=== PATIENT | female | born 1940 | race Caucasian/White ===

== ENCOUNTER 2023-06-24 12:03 | Outpatient (CLI) | payer MEDICARE, SELFPAY ==
[2023-06-24 12:53] LABS: Basophils Percent Auto 0.5 % (0.2-1.2); Eosinophils Absolute Auto 0.1 K/mm3 (0-0.3); Eosinophils Percent Auto 3.3 % (0-4.4); Hematocrit 39.5 % (37.0-47.0); Hemoglobin 12.9 g/dL (12.0-15.0); Immature Granulocyte Absolute 0.01 K/mm3 (0.00-0.031); Immature Granulocyte Percent A 0.2 % (0-0.5); Lymphocytes Absolute Auto 1.14 K/mm3 (0.9-3.2); Lymphocytes Percent Auto 26.6 % (18.3-44.2); Mean Corpuscular HGB Conc 32.7 g/dl (32-36); Mean Corpuscular Hemoglobin 31.1 pg (26-34); Mean Corpuscular Volume 95.2 fl (80-100); Mean Platelet Volume 10.2 fl (7.4-10.4); Monocytes Absolute Auto 0.4 K/mm3 (0.1-0.6); Monocytes Percent Auto 9.6 % (2.6-8.5); Neutrophils Absolute Auto 2.6 K/mm3 (1.3-6.7); Neutrophils Percent Auto 59.8 % (45.5-73.1); Platelet Count Result 214 k/mm3 (150-375); Red Blood Count 4.15 M/mm3 (4.2-5.4); Red Cell Distribution Width 12.5 % (11.5-14.5); White Blood Count 4.3 K/mm3 (4.5-10.0)
[2023-06-24 13:06] LABS: Potassium 4.4 mmol/L (3.4-5.0)
[2023-06-24 13:10] LABS: Alanine Aminotransferase 20 U/L (6-35); Alkaline Phosphatase 92 U/L (38-126); Anion Gap 6 mmol/L (8-16); Aspartate Amino Transferase 29 U/L (14-36); Bilirubin,Total 0.7 mg/dL (0.2-1.3); Blood Urea Nitrogen 23 mg/dL (7-17); Carbon Dioxide 30 mmol/L (22-30); Chloride 102 mmol/L (98-107); Estimated Glomerular Filt Rate > 60; Glucose 101 mg/dL (65-110); Sodium 138 mmol/L (137-145)
[2023-06-24 13:13] LABS: NT Pro B Type Natriuretic Pept 461 pg/mL (19.9-100)
== END 2023-06-24 12:04 | disposition home or self-care (01) ==
PROVIDERS: Visit Provider Internal Medicine Cardiovascular Disease
DX: R06.09 Other forms of dyspnea (principal); I10 Essential (primary) hypertension; R60.0 Localized edema; Z79.01 Long term (current) use of anticoagulants
CPT/HCPCS: 36415; 80053; 83880; 85025

== ENCOUNTER 2023-06-25 14:02 | Outpatient (CLI) | payer MEDICARE, SELFPAY ==
--- NOTE | ~2023-06-25 | XR_ITS ---
XR chest 2V DATE: 06/25/2023 14:24 INDICATION: Dyspnea on exertion TECHNIQUE: AP and lateral views COMPARISON: None FINDINGS: Cardiomegaly. Aortic arch calcification. Is slight prominence of the fissures and suggestion of some subtle {B-lines which may indicate mild s ubpleural and pulmonary interstitial edema. No pulmonary infiltrate or consolidation is evident. Osteopenia. Degenerative spurring of the thoracic spine. Osteoarthritic change at the glenohumeral kalin ints. Widened right acromioclavicular space. IMPRESSION: Cardiomegaly; mild congestive changes are suggested Reviewed, dictated and finalized at location L. [employer] DEVELOPER
== END 2023-06-25 14:03 | disposition home or self-care (01) ==
PROVIDERS: PCP Hospitalist; Visit Provider Internal Medicine Cardiovascular Disease
DX: R06.09 Other forms of dyspnea (principal); I51.7 Cardiomegaly
CPT/HCPCS: 71046

== ENCOUNTER 2023-06-30 17:45 | Inpatient (IN) | payer MEDICARE, SELFPAY ==
[2023-06-30 12:23] VITALS: BMI 53.5
--- NOTE | 2023-06-30 12:31 | ADMGEN ---
This patient, Shyanne Nino, was admitted to [facility] Surg Room 330-02. Patient/family oriented to hospital policies and general routines including ID bracelet, bed and alarms, visiting hours, pain management, procedures, bathroom and other care routines, personal items, smoking policy, room service/diet, and visiting hours. Information on how to activate the Rapid Response Team has been discussed. Patient/Family are encouraged to report perceived risks to care and to ask questions if they do not understand what they are told or what they should do.
[2023-06-30 12:52] VITALS: BMI 53.5
--- NOTE | 2023-06-30 13:13 | PM.CNCAR ---
Assessment and Plan Assessment and plan (1) Acute diastolic heart failure: Code(s): I50.31 - Acute diastolic (congestive) heart failure Status: Acute Assessment and Plan: Patient presented with new onset of diastolic heart failure last week with a 30 lb weight gain and worsening lower extremity edema with RIOS. She has but been noncompliant with outpatient diuretic therapy due to problems with urinary frequency, urgency, and significant problems with ambulation. We are admitting her for IV diuretics and likely she will need a Hines catheter for few days. --furosemide 40 mg IV push b.i.d. --spironolactone 25 mg daily --Jardiance 10 mg daily. Family had concerns about risk of yeast infections. She has had yeast infections which appear to be intertriginous to infections not in the perineal area. She is not a diabetic so is less likely to have problems with UTIs in perineal yeast infections with Jardiance. The benefit from an SGLT 2 inhibitor outweighs the risk of perineal yeast infections. --consider adding Entresto, although with her EF being greater than 60% the benefit may not be very high. -- I's and O's, daily weights -- consider as ApneaLink monitor after better compensated. (2) Hypertension: Code(s): I10 - Essential (primary) hypertension Status: Acute Assessment and Plan: Continue carvedilol, spironolactone, furosemide and enalapril (3) H/O deep venous thrombosis: Code(s): Z86.718 - Personal history of other venous thrombosis and embolism Status: Acute Assessment and Plan: History of DVTs. Continue Eliquis. She has been taking the lower dose, 2.5 mg b.i.d., for DVT prophylaxis. (4) Infection of knee: Code(s): M00.9 - Pyogenic arthritis, unspecified Status: Acute Assessment and Plan: Continue chronic suppressive antibiotic therapy (5) Difficulty in walking: Code(s): R26.2 - Difficulty in walking, not elsewhere classified Status: Acute Assessment and Plan: Patient has progressive disability, difficulty ambulating, and has been a fall risk. --Physical therapy and occupational therapy. History of Present Illness History of Present Illness Consult date/time: 06/30/23 13:13 Reason For Visit: Diastolic Heart Failure Narrative: Shyanne Nino is an 82-year-old lady with diastolic heart failure. She also has a history of hypertension, lymphedema, history of DVT on chronic anticoagulation. She also has a history of infected left knee a chronic suppressive antibiotics status post multiple lower extremity operations. She has had some trouble with depression and progressive disability. Her primary care doctor is hoping to start outpatient physical therapy and occupational therapy The patient was seen by myself last week with new onset diastolic heart failure. She was having more RIOS, significant edema, 30 lb weight gain, sleeping in a recliner. She had been noncompliant with her furosemide because of her inability to ambulate easily to the bathroom, and because of her urinary frequency which also prevents her from participating in activities at her assisted Living apartment. At that office visit I found her be MANAGER ENT was elevated and chest x-ray showed CHF to recommended she increase her furosemide from 20 mg daily to 40 mg daily and add spironolactone and Jardiance. She returned to the office today, non compliant with her diuretics due to the above problems. The with minor activity, and significant lower extremity edema. She is being admitted for CHF exacerbation for IV diuretics and likely a Hines catheter. Review of Systems Constitutional: Constitutional: Denies fever(s) Comments: weight gain of 30 lb Eyes: Eyes: Reports no additional eye complaints ENT: Denies epistaxis Cardiovascular: Cardiovascular: Denies chest pain, Reports pedal edema, Reports leg edema and Denies lightheadedness Respiratory: Respiratory:
[2023-06-30 14:00] VITALS: BP 180/56; PULSE 61; RESP 10; TEMP 36.4; O2SAT 95
[2023-06-30] MEDS: ENALAPRIL MALEATE 10 MG TABLET 20 MG PO (15:04)
[2023-06-30] MEDS: EMPAGLIFLOZIN 10 MG TABLET PO (15:04)
[2023-06-30] MEDS: SPIRONOLACTONE 25 MG TABLET PO (15:04)
--- NOTE | 2023-06-30 16:11 | PM.IMHP ---
H&P: HPI History of Present Illness Date/Time: 06/30/23 16:30 Chief Complaint: Diastolic congestive heart failure exacerbation. Narrative: This is a very pleasant 82-year-old female with history of deep venous thrombosis on chronic anticoagulation, hypertension, hyperlipidemia, chronic lymphedema, morbid obesity, and diastolic congestive heart failure who is being directly admitted to the medical floor for diuresis. She was seen by Dr. Hernandez as an outpatient last week for evaluation of new onset diastolic congestive heart failure. She reports a 30 lb weight gain and worsening lower extremity edema with dyspnea on exertion. She has not been compliant with diuretics as it causes her urinary frequency and due to her weight and debility she is not able to get to the bathroom quickly when she develops the urge to urinate. She is being admitted in this setting for IV diuresis. At the time my evaluation she is resting comfortably and has no specific complaints. She denies chest pain, pleuritic pain, palpitations, orthopnea (she has slept in a recliner for years), nausea, vomiting, and sweats. Review of Systems Review of Systems: Twelve systems were reviewed. No fever, chills, or sweats. No recent cold or flu symptoms. She has chronic lymphedema and had seen a specialist previously. She was given a pump to help treat the lymphedema however does not use it. She has not had any falls but reports that she is unsteady on her feet and has difficulties ambulating due to the size of her legs. She is afraid that she is going to have falls. She has no known history of sleep apnea. Except as documented, all other systems were reviewed and are negative. [facility] Past Medical History Medical History (Updated 06/30/23 @ 22:36 by Donna Beck PA-C) Arthritis Chronic anticoagulation For history of several DVTs. Deep venous thrombosis History of DVT in the right upper extremity and lower extremities on chronic anticoagulation. Depression Diastolic congestive heart failure Hyperlipidemia Hypertension Infection of knee Chronic knee infection, on chronic suppressive antibiotics through Infectious Disease at [facility]. Lymphedema Morbid obesity Rupture of left quadriceps tendon Surgical History Surgical History (Updated 06/30/23 @ 22:34 by Donna Beck PA-C) History of bilateral cataract extraction History of bilateral knee replacement History of section History of cholecystectomy History of hysterectomy History of rotator cuff surgery History of toe surgery Family History Family History Mother Lung cancer Grandparent No problems noted. Father Diabetes mellitus Congestive heart failure Social History Social History Social History: Healthcare power of eap consultant: Niurka Muir, daughter. Code status: Full code. Smoking status: Never smoker Alcohol intake: never Substance use: never Do You Feel Safe in your Home?: No Lack of Transportation: No Lack of Food: Never True Current Housing: I Have Housing Concerned About Future Housing: No Difficulty Paying Gas/Electric Bills: No Difficulty Paying for Meds: No Currently Unemployed: No Education: High School Diploma/GED Difficulty w/ Childcare or Family Care: No Living arrangements: assisted living Spiritual care concerns: No Meds Home Medications and Allergies Home Medications Medication Instructions Recorded Confirmed Type amiloride 5 mg tablet 5 mg PO DAILY 06/30/23 06/30/23 History apixaban 2.5 mg tablet (Eliquis) 2.5 mg PO BID 06/30/23 06/30/23 History atorvastatin 10 mg tablet 10 mg PO HS 06/30/23 06/30/23 History carvedilol 12.5 mg tablet 12.5 mg PO BIDWM 06/30/23 06/30/23 History cefpodoxime 200 mg tablet 200 mg PO 1200,1700 06/30/23 06/30/23 History empagliflozin 10 mg tablet 10 mg PO DAILY 06/15
[2023-06-30 16:45] LABS: Appearance Urine Clear (Clear); Bilirubin Urine Negative (Negative); Blood Urine Negative (Negative); Color Urine Yellow (Yellow); Glucose Urine UA Trace mg/dL (Negative); Ketones Urine Negative (Negative); Leukocyte Esterase Ur Negative LEU/UL (NEGATIVE); Nitrate Urine Negative (Negative); Protein Urine Negative (Negative); Specific Grav Ur 1.014 (1.001-1.035); Urobilinogen Urine 0.2 mg/dL (<2.0)
[2023-06-30 16:50] LABS: Add Urine Microscopic? YES
[2023-06-30 17:06] VITALS: BP 182/62; PULSE 64; RESP 22; TEMP 36.4; O2SAT 96
--- NOTE | 2023-06-30 17:10 | PHAR ---
HOME MED Cefpodoxime 200 mg tablet; TAKE 1 TABLET (200 MG) BY MOUTH TWICE DAILY. VERIFIED BY PHARMACY.
[2023-06-30 17:18] VITALS: PULSE 64
[2023-06-30] MEDS: TOLNAFTATE 1% POWDER 45 GM BTL 1 APPLIC TOPICAL ×2 (17:18→20:52)
[2023-06-30] MEDS: APIXABAN 2.5 MG TABLET PO (17:18)
[2023-06-30] MEDS: POTASSIUM CHLORIDE 10 MEQ ER TABLET PO (17:18)
[2023-06-30] MEDS: carvediloL 12.5 MG TABLET PO (17:18)
[2023-06-30] MEDS: FUROSEMIDE INJ 40 MG/4 ML VIAL IV PUSH (17:19)
[2023-06-30] MEDS: INDOMETHACIN 25 MG CAPSULE PO (17:19)
[2023-06-30] MEDS: ACETAMINOPHEN 325 MG TABLET 650 MG PO (17:42)
[2023-06-30] MEDS: ATORVASTATIN 10 MG TABLET PO (20:51)
[2023-06-30] MEDS: traZODone HCL 50 MG TABLET PO (20:51)
[2023-06-30 22:00] VITALS: BP 152/55; PULSE 60; RESP 18; TEMP 37; O2SAT 93
[2023-07-01 06:00] VITALS: BP 147/63; PULSE 64; RESP 20; TEMP 36.8; O2SAT 95
[2023-07-01 06:31] LABS: Hematocrit 36.3 % (37.0-47.0); Mean Corpuscular HGB Conc 33.1 g/dl (32-36); Mean Corpuscular Hemoglobin 31.7 pg (26-34); Mean Corpuscular Volume 95.8 fl (80-100); Mean Platelet Volume 10.2 fl (7.4-10.4); Platelet Count Result 211 k/mm3 (150-375); Red Blood Count 3.79 M/mm3 (4.2-5.4); Red Cell Distribution Width 12.5 % (11.5-14.5)
[2023-07-01 06:43] LABS: Alanine Aminotransferase 20 U/L (6-35); Albumin Level 3.6 g/dL (3.5-5.1); Alkaline Phosphatase 74 U/L (38-126); Anion Gap 3 mmol/L (8-16); Aspartate Amino Transferase 25 U/L (14-36); Bilirubin,Total 0.8 mg/dL (0.2-1.3); Blood Urea Nitrogen 25 mg/dL (7-17); Calcium 8.7 mg/dL (8.4-10.2); Carbon Dioxide 33 mmol/L (22-30); Chloride 102 mmol/L (98-107); Estimated CRCL calculation 59 ml/min; Estimated Glomerular Filt Rate > 60; Glucose 91 mg/dL (65-110); Magnesium 1.7 mg/dL (1.6-2.3); Sodium 138 mmol/L (137-145)
[2023-07-01 08:43] VITALS: BP 159/54; PULSE 65; RESP 18; TEMP 37.2; O2SAT 96
--- NOTE | 2023-07-01 08:46 | PM.PNCARD ---
Progress Note: A&P Assessment and Plan (1) Acute diastolic heart failure: Code(s): I50.31 - Acute diastolic (congestive) heart failure Status: Acute Assessment and Plan: Patient presented with new onset of diastolic heart failure last week with a 30 lb weight gain and worsening lower extremity edema with RIOS. She has but been noncompliant with outpatient diuretic therapy due to problems with urinary frequency, urgency, and significant problems with ambulation. We are admitting her for IV diuretics and likely she will need a Hines catheter for few days. Diuresing well. --continue furosemide 40 mg IV push b.i.d. --continue spironolactone 25 mg daily and Jardiance 10 mg daily which were started on this admission. --will add Entresto, although with her EF being greater than 60% the benefit may not be very high. Hold enalapril 1st. -- I's and O's, daily weights, daily BMP --no history of sleep apnea but snores. ApneaLink monitor --explained to the patient that we will try to get her close to optimal volume status during this hospital stay, and this will require several days of INPT IV diuretic tx. She will require some diuretic therapy on discharge but hopefully something that is better tolerated than furosemide (which causes urinary urgency and frequency and is often skipped) --perhaps amiloride + spironolactone? (2) Hypertension: Code(s): I10 - Essential (primary) hypertension Status: Acute Assessment and Plan: Continue carvedilol, spironolactone, furosemide and change enalapril to Entresto. BP likely will improve w/ diuresis. (3) H/O deep venous thrombosis: Code(s): Z86.718 - Personal history of other venous thrombosis and embolism Status: Acute Assessment and Plan: History of DVTs. Continue Eliquis. She has been taking the lower dose, 2.5 mg b.i.d., for DVT prophylaxis. (4) Infection of knee: Code(s): M00.9 - Pyogenic arthritis, unspecified Status: Acute Assessment and Plan: Continue chronic suppressive antibiotic therapy (5) Lymphedema: Code(s): I89.0 - Lymphedema, not elsewhere classified Status: Acute Assessment and Plan: TEDs (6) Difficulty in walking: Code(s): R26.2 - Difficulty in walking, not elsewhere classified Status: Acute Assessment and Plan: Patient has progressive disability, difficulty ambulating, and has been a fall risk. --Physical therapy and occupational therapy. Subjective Date/time seen: 07/01/23 08:46 Interval history: New onset of acute diastolic failure, failing outpatient therapy, admitted for IV diuretics. History of hypertension, lymphedema, DVT on chronic anticoagulation, chronic infection of knee, and ambulatory difficulties. Great difficulty taking diuretics at home due to issues with ambulation Date of service: 07/01/2023: Feels well, no SOB at rest. Already wondering how long she will need to be here and when she can go home. Daughter Veronica? is at the bedside. Systolic blood pressure 150-180 MmHg. Good diuresis. Not requiring O2. Worked with physical therapy. Review of Systems Review of Systems: No shortness of breath at rest, no chest pain, ongoing edema, no GI problems, no pain. Exam Const: General: cooperative, healthy appearing and comfortable; No confusion Orientation/consciousness: oriented to person, patient oriented x3 and No confusion Other: Sitting up in a chair, daughter at bedside, no distress HENMT: Mouth: Yes moist mucous membranes Eyes: General: appearance normal, both eyes and all related structures EOM: EOMs intact bilaterally Neck: Neck: supple Resp: Effort & Inspection: normal respiratory effort Auscultation: rales (Left base) Cardio: Rate: regular rate Rhythm: regular rhythm Heart sounds: no murmurs GI: Inspection: normal to inspection GI Palp: No abdominal tenderness Skin: Rashes: rashes noted
[2023-07-01] MEDS: ESCITALOPRAM OXALATE 10 MG TABLET 20 MG PO (09:14)
[2023-07-01 09:15] VITALS: PULSE 80
[2023-07-01] MEDS: EMPAGLIFLOZIN 10 MG TABLET PO (09:15)
[2023-07-01] MEDS: carvediloL 12.5 MG TABLET PO ×2 (09:15→16:14)
[2023-07-01] MEDS: SPIRONOLACTONE 25 MG TABLET PO (09:15)
[2023-07-01] MEDS: APIXABAN 2.5 MG TABLET PO ×2 (09:15→16:15)
[2023-07-01] MEDS: POTASSIUM CHLORIDE 10 MEQ ER TABLET PO ×2 (09:15→16:15)
[2023-07-01] MEDS: INDOMETHACIN 25 MG CAPSULE PO ×2 (09:15→16:14)
[2023-07-01] MEDS: FUROSEMIDE INJ 40 MG/4 ML VIAL IV PUSH ×2 (09:16→16:15)
[2023-07-01] MEDS: ENALAPRIL MALEATE 10 MG TABLET 20 MG PO (12:11)
[2023-07-01 14:00] VITALS: BP 128/43; PULSE 59; RESP 16; TEMP 36.6; O2SAT 95
--- NOTE | 2023-07-01 16:09 | PM.IMPN ---
Progress Note: A&P Assessment and Plan (1) Acute on chronic diastolic heart failure: Code(s): I50.33 - Acute on chronic diastolic (congestive) heart failure Status: Acute Assessment and Plan: furosemide 40 mg IV b.i.d. started on spironolactone 20 mg p.o. daily. Jardiance 10 mg daily Monitor volume status, renal function, and electrolytes while diuresing. cardiology consulted - add Entresto, although with her EF being greater than 60% the benefit may not be very high. Hold enalapril 1st. apnea link ordered (2) Morbid obesity: Code(s): E66.01 - Morbid (severe) obesity due to excess calories Status: Chronic (3) Difficulty in walking: Code(s): R26.2 - Difficulty in walking, not elsewhere classified Status: Chronic Assessment and Plan: Patient has progressive disability, difficulty ambulating, and has been a fall risk. PT/OT (4) Hypertension: Code(s): I10 - Essential (primary) hypertension Status: Chronic Assessment and Plan: Continue carvedilol, spironolactone, furosemide change enalapril to Entresto. (5) Chronic anticoagulation: Code(s): Z79.01 - [facility] (current) use of anticoagulants Status: Chronic Assessment and Plan: hx of DVT continue Eliquis (6) Lymphedema: Code(s): I89.0 - Lymphedema, not elsewhere classified Status: Chronic Subjective Date/time seen: 07/01/23 16:09 Interval history: Patient doing well this morning, denies any pain or distress. Will continue IV diuresis. No drop in weight since admission. Denies SOB or chest pain. Cardiology following and will follow recommendations. Continue to monitor response. Hnies remains in place while actively diuresing. Review of Systems Review of Systems: All systems reviewed & are unremarkable except as noted in HPI and below Exam Narrative: General: Well-developed, nontoxic-appearing female bed in no acute distress. HEENT: PERRL, EOMI. Neck: Supple. Respiratory: Respirations are nonlabored Faint crackles heard at the bases. Cardiovascular: RRR with S1-S2. Gastrointestinal: Abdomen is soft, morbidly obese, nontender, and nondistended with positive bowel sounds. Skin: Warm and dry. Chronic skin changes of the lower extremities bilaterally. Extremities: No cyanosis or clubbing. Significant bilateral lower extremity edema with pitting edema, left greater than right. Radial and pedal pulses intact. Neurological: A&O x3. Cranial nerves 2-12 are grossly intact. No gross focal deficits to casual conversation. Psychiatric: Pleasant and cooperative with normal mood and affect. Judgment and insight intact. Objective Data Vital Signs Vital Signs: Vital Signs - 24 hr 06/30/23 17:06 06/30/23 17:18 06/30/23 22:00 Temperature 97.5 F L 98.6 F Pulse Rate 64 64 60 Respiratory Rate 22 H 18 Blood Pressure 182/62 H 152/55 H Pulse Oximetry 96 93 Oxygen Delivery 07/01/23 06:00 07/01/23 08:43 07/01/23 09:15 Temperature 98.2 F 98.9 F Pulse Rate 64 65 80 Respiratory Rate 20 18 Blood Pressure 147/63 H 159/54 H Pulse Oximetry 95 96 Oxygen Delivery 07/01/23 09:15 07/01/23 11:17 07/01/23 14:00 Temperature 97.9 F Pulse Rate 59 L Respiratory Rate 16 Blood Pressure 128/43 L Pulse Oximetry 95 Oxygen Delivery Room Air Room Air Intake/Output Intake/Output: Intake & Output 06/28/23 06/29/23 06/30/23 07/01/23 23:59 23:59 23:59 23:59 Intake Total 550 780 Output Total 1450 2750 Balance -900 -1970 Meds/Results Medications: Active Medications Generic Name Dose Route Start Last Admin Trade Name Freq PRN Reason Stop Dose Admin Acetaminophen 650 mg 06/30/23 16:23 06/30/23 17:42 Acetaminophen 325 Mg Tablet PO 650 mg Q6H PRN Administration Mild Pain (1-3) or Fever Apixaban 2.5 mg 06/30/23 17:00 07/01/23 09:15 Apixaban 2.5 Mg Tablet PO 2.5 mg BID WILLIAM Administration
[2023-07-01 16:14] VITALS: PULSE 64
[2023-07-01] MEDS: TOLNAFTATE 1% POWDER 45 GM BTL 1 APPLIC TOPICAL ×2 (16:14→20:55)
[2023-07-01] MEDS: diphenhydrAMINE HCl CAP 25 MG CAPSULE PO (17:51)
[2023-07-01] MEDS: ATORVASTATIN 10 MG TABLET PO (20:54)
[2023-07-01 22:00] VITALS: BP 138/51; PULSE 62; RESP 18; TEMP 36.6; O2SAT 93
[2023-07-01] MEDS: traZODone HCL 50 MG TABLET PO (22:19)
[2023-07-02 06:00] VITALS: BP 158/72; PULSE 69; RESP 18; TEMP 36.4; O2SAT 92
[2023-07-02 07:00] LABS: Hematocrit 37.2 % (37.0-47.0); Hemoglobin 11.7 g/dL (12.0-15.0); Mean Corpuscular HGB Conc 31.5 g/dl (32-36); Mean Corpuscular Hemoglobin 30.2 pg (26-34); Mean Corpuscular Volume 95.9 fl (80-100); Mean Platelet Volume 10.1 fl (7.4-10.4); Platelet Count Result 198 k/mm3 (150-375); Red Blood Count 3.88 M/mm3 (4.2-5.4); Red Cell Distribution Width 12.4 % (11.5-14.5); White Blood Count 5.7 K/mm3 (4.5-10.0)
[2023-07-02 07:16] LABS: Anion Gap 6 mmol/L (8-16); Blood Urea Nitrogen 25 mg/dL (7-17); Calcium 8.6 mg/dL (8.4-10.2); Carbon Dioxide 33 mmol/L (22-30); Chloride 99 mmol/L (98-107); Estimated CRCL calculation 58 ml/min; Estimated Glomerular Filt Rate > 60; Glucose 106 mg/dL (65-110); Potassium 3.8 mmol/L (3.4-5.0); Sodium 138 mmol/L (137-145)
[2023-07-02 10:23] VITALS: PULSE 64
[2023-07-02] MEDS: FUROSEMIDE INJ 40 MG/4 ML VIAL IV PUSH ×2 (10:23→17:06)
[2023-07-02] MEDS: INDOMETHACIN 25 MG CAPSULE PO ×2 (10:23→17:05)
[2023-07-02] MEDS: EMPAGLIFLOZIN 10 MG TABLET PO (10:23)
[2023-07-02] MEDS: carvediloL 12.5 MG TABLET PO ×2 (10:23→17:05)
[2023-07-02] MEDS: POTASSIUM CHLORIDE 10 MEQ ER TABLET PO ×2 (10:23→17:05)
[2023-07-02] MEDS: SPIRONOLACTONE 25 MG TABLET PO (10:23)
[2023-07-02] MEDS: ESCITALOPRAM OXALATE 10 MG TABLET 20 MG PO (10:23)
[2023-07-02] MEDS: APIXABAN 2.5 MG TABLET PO ×2 (10:23→17:06)
[2023-07-02] MEDS: TOLNAFTATE 1% POWDER 45 GM BTL 1 APPLIC TOPICAL ×2 (10:26→20:33)
--- NOTE | 2023-07-02 11:11 | PM.IMPN ---
Progress Note: A&P Assessment and Plan (1) Acute on chronic diastolic heart failure: Code(s): I50.33 - Acute on chronic diastolic (congestive) heart failure Status: Acute Assessment and Plan: furosemide 40 mg IV b.i.d. started on spironolactone 20 mg p.o. daily. Jardiance 10 mg daily Monitor volume status, renal function, and electrolytes while diuresing. cardiology consulted - add Entresto, although with her EF being greater than 60% the benefit may not be very high. Hold enalapril 1st. apnea link done, would benefit from outpatient sleep study. CPAP while inpatient (2) Morbid obesity: Code(s): E66.01 - Morbid (severe) obesity due to excess calories Status: Chronic (3) Difficulty in walking: Code(s): R26.2 - Difficulty in walking, not elsewhere classified Status: Chronic Assessment and Plan: Patient has progressive disability, difficulty ambulating, and has been a fall risk. PT/OT (4) Hypertension: Code(s): I10 - Essential (primary) hypertension Status: Chronic Assessment and Plan: Continue carvedilol, spironolactone, furosemide change enalapril to Entresto. (5) Chronic anticoagulation: Code(s): Z79.01 - salvage determiner (current) use of anticoagulants Status: Chronic Assessment and Plan: hx of DVT continue Eliquis (6) Lymphedema: Code(s): I89.0 - Lymphedema, not elsewhere classified Status: Chronic Subjective Date/time seen: 07/02/23 11:11 Interval history: Patient doing well this morning, denies any pain or distress. She is sitting up in her chair. Will continue IV diuresis. Denies SOB or chest pain. Cardiology following and will follow recommendations. Continue to monitor response. Hines remains in place while actively diuresing. Apnea link done and patient would benefit from outpatient sleep study. Will order CPAP while inpatient. Review of Systems Review of Systems: All systems reviewed & are unremarkable except as noted in HPI and below Exam Narrative: General: Well-developed, nontoxic-appearing female bed in no acute distress. HEENT: PERRL, EOMI. Neck: Supple. Respiratory: Respirations are nonlabored, lungs clear to ausculation. Cardiovascular: RRR with S1-S2. Gastrointestinal: Abdomen is soft, morbidly obese, nontender, and nondistended with positive bowel sounds. Skin: Warm and dry. Chronic skin changes of the lower extremities bilaterally. Extremities: No cyanosis or clubbing. Improving bilateral lower extremity edema with pitting edema, left greater than right. Radial and pedal pulses intact. Neurological: A&O x3. Cranial nerves 2-12 are grossly intact. No gross focal deficits to casual conversation. Psychiatric: Pleasant and cooperative with normal mood and affect. Judgment and insight intact. Objective Data Vital Signs Vital Signs: Vital Signs - 24 hr 07/01/23 11:17 07/01/23 14:00 07/01/23 16:14 Temperature 97.9 F Pulse Rate 59 L 64 Respiratory Rate 16 Blood Pressure 128/43 L Pulse Oximetry 95 Oxygen Delivery Room Air 07/01/23 22:00 07/02/23 06:00 07/02/23 10:23 Temperature 97.9 F 97.5 F L Pulse Rate 62 69 64 Respiratory Rate 18 18 Blood Pressure 138/51 L 158/72 H Pulse Oximetry 93 92 Oxygen Delivery Intake/Output Intake/Output: Intake & Output 06/29/23 06/30/23 07/01/23 07/02/23 23:59 23:59 23:59 23:59 Intake Total 550 1390 390 Output Total 1450 4750 850 Balance -739 -3493 -583 Meds/Results Medications: Active Medications Generic Name Dose Route Start Last Admin Trade Name Freq PRN Reason Stop Dose Admin Acetaminophen 650 mg 06/30/23 16:23 06/30/23 17:42 Acetaminophen 325 Mg Tablet PO 650 mg Q6H PRN Administration Mild Pain (1-3) or Fever Apixaban 2.5 mg 06/30/23 17:00 07/02/23 10:23 Apixaban 2.5 Mg Tablet PO 2.5 mg BID WILLIAM Administration Atorvastatin Calcium 10 mg 06/30/23 21
[2023-07-02 14:00] VITALS: BP 139/74; PULSE 60; RESP 16; TEMP 36.4; O2SAT 96
--- NOTE | 2023-07-02 14:03 | PM.PNCARD ---
Progress Note: A&P Assessment and Plan (1) Acute diastolic heart failure: Code(s): I50.31 - Acute diastolic (congestive) heart failure Status: Acute Assessment and Plan: Patient presented with new onset of diastolic heart failure last week with a 30 lb weight gain and worsening lower extremity edema with RIOS. She has not been noncompliant with outpatient diuretic therapy due to problems with urinary frequency, urgency, and significant problems with ambulation. We admitted her for IV diuretics and likely she will need a Hiens catheter for few days. Diuresing well. --continue furosemide 40 mg IV push b.i.d. --continue spironolactone 25 mg daily and Jardiance 10 mg daily which were started on this admission. --will add Entresto, although with her EF being greater than 60% the benefit may not be very high. Hold enalapril 1st. -- I's and O's, daily weights, daily BMP --explained to the patient that we will try to get her close to optimal volume status during this hospital stay, and this will require several days of INPT IV diuretic tx. She will require some diuretic therapy on discharge but hopefully something that is better tolerated than furosemide (which causes urinary urgency and frequency with which patient was non compliant) --perhaps amiloride + spironolactone daily? And furosemide once or twice a week? --anticipate discharge on Thursday or Thursday. (2) Hypertension: Code(s): I10 - Essential (primary) hypertension Status: Chronic Assessment and Plan: Continue carvedilol, spironolactone, furosemide and change enalapril to Entresto. BP likely will improve w/ diuresis. (3) H/O deep venous thrombosis: Code(s): Z86.718 - Personal history of other venous thrombosis and embolism Status: Acute Assessment and Plan: History of DVTs. Continue Eliquis. She has been taking the lower dose, 2.5 mg b.i.d., for DVT prophylaxis. (4) Infection of knee: Code(s): M00.9 - Pyogenic arthritis, unspecified Status: Acute Assessment and Plan: Continue chronic suppressive antibiotic therapy (5) Lymphedema: Code(s): I89.0 - Lymphedema, not elsewhere classified Status: Chronic Assessment and Plan: TEDs while here. Encourage patient to use her compression boots when she gets discharged. Supposed use of med an hour twice daily. (6) Rash: Code(s): R21 - Rash and other nonspecific skin eruption Status: Acute Assessment and Plan: Intertriginous rash, probably [place], present on admission. Getting cleaned and dried, powdered with antifungal powder. (7) Difficulty in walking: Code(s): R26.2 - Difficulty in walking, not elsewhere classified Status: Chronic Assessment and Plan: Patient has progressive disability, difficulty ambulating, and has been a fall risk. --Physical therapy and occupational therapy. Subjective Date/time seen: 07/02/23 14:03 Interval history: New onset of acute diastolic failure, failing outpatient therapy, admitted for IV diuretics. History of hypertension, lymphedema, DVT on chronic anticoagulation, chronic infection of knee, and ambulatory difficulties. Great difficulty taking diuretics at home due to issues with ambulation Date of service 07/01/2023: Feels well, no SOB at rest. Already wondering how long she will need to be here and when she can go home. Daughter Veronica? is at the bedside. Systolic blood pressure 150-180 MmHg. Good diuresis. Not requiring O2. Worked with physical therapy. Service 07/02/2023: Less RIOS w/ Ph Tx. LE edema improving. Maintaining good diuresis. Renal function stable. Itchy intertriginous rash in the inguinal areas quite bothersome; getting Tolnaftate powder. Pleased to have a thorough bed bath today. ApneaLInk: AHI 16, lowest O2 sat 79%, suggesting PILLO Review of Systems Review of Systems: No shortness of breath at rest, no chest ronaldo
[2023-07-02] MEDS: diphenhydrAMINE HCl CAP 25 MG CAPSULE PO ×2 (15:21→21:13)
[2023-07-02 17:05] VITALS: PULSE 80
[2023-07-02] MEDS: SACUBITRIL/VALSARTAN 24-26 MG TABLET 1 TAB PO (20:33)
[2023-07-02] MEDS: ATORVASTATIN 10 MG TABLET PO (20:33)
[2023-07-02 22:00] VITALS: BP 147/53; PULSE 55; RESP 16; TEMP 36.2; O2SAT 96
[2023-07-02] MEDS: traZODone HCL 50 MG TABLET PO (22:20)
[2023-07-03] VITALS (7 sets, daily range): BP systolic 112–134; BP diastolic 50–68; PULSE 57–94; RESP 17–18; TEMP 36.5–36.6; O2SAT 94–96
[2023-07-03] MEDS: POTASSIUM CHLORIDE 10 MEQ ER TABLET PO ×2 (08:25→17:26)
[2023-07-03] MEDS: SACUBITRIL/VALSARTAN 24-26 MG TABLET 1 TAB PO ×2 (08:25→21:33)
[2023-07-03] MEDS: FUROSEMIDE INJ 40 MG/4 ML VIAL IV PUSH ×2 (08:25→17:25)
[2023-07-03] MEDS: INDOMETHACIN 25 MG CAPSULE PO ×2 (08:25→17:26)
[2023-07-03] MEDS: EMPAGLIFLOZIN 10 MG TABLET PO (08:26)
[2023-07-03] MEDS: diphenhydrAMINE HCl CAP 25 MG CAPSULE PO ×3 (08:26→21:33)
[2023-07-03] MEDS: carvediloL 12.5 MG TABLET PO ×2 (08:26→17:25)
[2023-07-03] MEDS: ESCITALOPRAM OXALATE 10 MG TABLET 20 MG PO (08:26)
[2023-07-03] MEDS: APIXABAN 2.5 MG TABLET PO ×2 (08:27→17:26)
[2023-07-03] MEDS: TOLNAFTATE 1% POWDER 45 GM BTL 1 APPLIC TOPICAL ×2 (08:27→21:36)
[2023-07-03] MEDS: SPIRONOLACTONE 25 MG TABLET PO (08:27)
[2023-07-03 09:03] LABS: Hematocrit 41.7 % (37.0-47.0); Mean Corpuscular HGB Conc 31.2 g/dl (32-36); Mean Corpuscular Hemoglobin 30.4 pg (26-34); Mean Corpuscular Volume 97.7 fl (80-100); Mean Platelet Volume 10.7 fl (7.4-10.4); Platelet Count Result 213 k/mm3 (150-375); Red Blood Count 4.27 M/mm3 (4.2-5.4); Red Cell Distribution Width 12.4 % (11.5-14.5); White Blood Count 5.5 K/mm3 (4.5-10.0)
[2023-07-03 09:25] LABS: Anion Gap 7 mmol/L (8-16); Blood Urea Nitrogen 29 mg/dL (7-17); Calcium 9.3 mg/dL (8.4-10.2); Carbon Dioxide 34 mmol/L (22-30); Chloride 97 mmol/L (98-107); Estimated CRCL calculation 53 ml/min; Estimated Glomerular Filt Rate 60; Glucose 99 mg/dL (65-110); Potassium 4.4 mmol/L (3.4-5.0); Sodium 138 mmol/L (137-145)
--- NOTE | 2023-07-03 09:42 | PM.PNCARD ---
Progress Note: A&P Assessment and Plan (1) Acute diastolic heart failure: Code(s): I50.31 - Acute diastolic (congestive) heart failure Status: Acute Assessment and Plan: Patient presented with new onset of diastolic heart failure last week with a 30 lb weight gain and worsening lower extremity edema with RIOS. She has not been noncompliant with outpatient diuretic therapy due to problems with urinary frequency, urgency, and significant problems with ambulation. We admitted her for IV diuretics and likely she will need a Hines catheter for few days. Diuresing well. --continue furosemide 40 mg IV push b.i.d. BUN 29 today from 25. May need to shift to p.o. diuretic soon --continue spironolactone 25 mg daily and Jardiance 10 mg daily which were started on this admission. --Continue Entresto -- I's and O's, daily weights, daily BMP --Will try to get her close to optimal volume status during this hospital stay, and this will require several days of INPT IV diuretic tx. She will require some diuretic therapy on discharge but hopefully something that is better tolerated than furosemide (which causes urinary urgency and frequency with which patient was non compliant) --perhaps amiloride + spironolactone daily? And furosemide once or twice a week? --anticipate discharge on Thursday or Thursday. (2) Hypertension: Code(s): I10 - Essential (primary) hypertension Status: Chronic Assessment and Plan: Continue carvedilol, spironolactone, furosemide, and Entresto. BP likely will improve w/ diuresis. (3) H/O deep venous thrombosis: Code(s): Z86.718 - Personal history of other venous thrombosis and embolism Status: Acute Assessment and Plan: History of DVTs. Continue Eliquis. She has been taking the lower dose, 2.5 mg b.i.d., for DVT prophylaxis. (4) Infection of knee: Code(s): M00.9 - Pyogenic arthritis, unspecified Status: Acute Assessment and Plan: Continue chronic suppressive antibiotic therapy (5) Lymphedema: Code(s): I89.0 - Lymphedema, not elsewhere classified Status: Chronic Assessment and Plan: TEDs while here. Continue use of compression boots when she gets discharged. (6) Rash: Code(s): R21 - Rash and other nonspecific skin eruption Status: Acute Assessment and Plan: Intertriginous rash, probably [place], present on admission. Getting cleaned and dried, powdered with antifungal powder. (7) Difficulty in walking: Code(s): R26.2 - Difficulty in walking, not elsewhere classified Status: Chronic Assessment and Plan: Patient has progressive disability, difficulty ambulating, and has been a fall risk. --Physical therapy and occupational therapy. Subjective Date/time seen: 07/03/23 09:42 Interval history: New onset of acute diastolic failure, failing outpatient therapy, admitted for IV diuretics. History of hypertension, lymphedema, DVT on chronic anticoagulation, chronic infection of knee, and ambulatory difficulties. Great difficulty taking diuretics at home due to issues with ambulation Date of service 07/01/2023: Feels well, no SOB at rest. Already wondering how long she will need to be here and when she can go home. Daughter Veronica? is at the bedside. Systolic blood pressure 150-180 MmHg. Good diuresis. Not requiring O2. Worked with physical therapy. Service 07/02/2023: Less RIOS w/ Ph Tx. LE edema improving. Maintaining good diuresis. Renal function stable. Itchy intertriginous rash in the inguinal areas quite bothersome; getting Tolnaftate powder. Pleased to have a thorough bed bath today. ApneaLInk: AHI 16, lowest O2 sat 79%, suggesting PILLO Date of service 07/03/23: Shortness of a improving. Swelling improving as well, but still volume overloaded. BP, renal function stable. Still itchy. Review of Systems Review of Systems: No shortness of breath at rest, no joshua
--- NOTE | 2023-07-03 12:37 | PM.IMPN ---
Progress Note: A&P Assessment and Plan (1) Acute on chronic diastolic heart failure: Code(s): I50.33 - Acute on chronic diastolic (congestive) heart failure Status: Acute Assessment and Plan: continue furosemide 40 mg IV BID continue spironolactone 20 mg daily. Jardiance 10 mg daily Monitor volume status, renal function, and electrolytes while diuresing. cardiology following - add Entresto, although with her EF being greater than 60% the benefit may not be very high. Hold enalapril 1st. working on d/c plan to increase compliance without Hines catheter apnea link done, would benefit from outpatient sleep study. CPAP while inpatient (2) Morbid obesity: Code(s): E66.01 - Morbid (severe) obesity due to excess calories Status: Chronic (3) Difficulty in walking: Code(s): R26.2 - Difficulty in walking, not elsewhere classified Status: Chronic Assessment and Plan: Patient has progressive disability, difficulty ambulating, and has been a fall risk. PT/OT (4) Hypertension: Code(s): I10 - Essential (primary) hypertension Status: Chronic Assessment and Plan: Continue carvedilol, spironolactone, furosemide changed enalapril to Entresto. (5) Chronic anticoagulation: Code(s): Z79.01 - terminal clerk (current) use of anticoagulants Status: Chronic Assessment and Plan: hx of DVT continue Eliquis (6) Lymphedema: Code(s): I89.0 - Lymphedema, not elsewhere classified Status: Chronic Plan Plan to d/c Thursday or Thursday Subjective Date/time seen: 07/03/23 12:37 Interval history: Patient has no complaints this morning, denies any pain or distress. She is sitting up in her chair. Will continue IV diuresis. Denies SOB or chest pain. Cardiology following and will follow recommendations. Hines remains in place while actively diuresing. Review of Systems Review of Systems: All systems reviewed & are unremarkable except as noted in HPI and below Exam Narrative: General: Well-developed, nontoxic-appearing female bed in no acute distress. HEENT: PERRL, EOMI. Neck: Supple. Respiratory: Respirations are nonlabored, lungs clear to ausculation. Cardiovascular: RRR with S1-S2. Gastrointestinal: Abdomen is soft, morbidly obese, nontender, and nondistended with positive bowel sounds. Skin: Warm and dry. Chronic skin changes of the lower extremities bilaterally. Extremities: No cyanosis or clubbing. Improving bilateral lower extremity edema with pitting edema, left greater than right. Radial and pedal pulses intact. Neurological: A&O x3. Cranial nerves 2-12 are grossly intact. No gross focal deficits to casual conversation. Psychiatric: Pleasant and cooperative with normal mood and affect. Judgment and insight intact. Objective Data Vital Signs Vital Signs: Vital Signs - 24 hr 07/02/23 14:00 07/02/23 17:05 07/02/23 22:00 Temperature 97.5 F L 97.1 F L Pulse Rate 60 80 55 L Respiratory Rate 16 16 Blood Pressure 139/74 147/53 H Pulse Oximetry 96 96 Oxygen Delivery 07/03/23 06:00 07/03/23 08:26 07/03/23 08:25 Temperature 97.7 F Pulse Rate 74 57 L Respiratory Rate 17 Blood Pressure 134/50 L Pulse Oximetry 94 Oxygen Delivery Room Air Intake/Output Intake/Output: Intake & Output 06/30/23 07/01/23 07/02/23 07/03/23 23:59 23:59 23:59 23:59 Intake Total 550 1390 880 480 Output Total 1450 4750 2450 700 Balance -650 -1206 -1570 -220 Meds/Results Medications: Active Medications Generic Name Dose Route Start Last Admin Trade Name Freq PRN Reason Stop Dose Admin Acetaminophen 650 mg 06/30/23 16:23 06/30/23 17:42 Acetaminophen 325 Mg Tablet PO 650 mg Q6H PRN Administration Mild Pain (1-3) or Fever Apixaban 2.5 mg 06/30/23 17:00 07/03/23 08:27 Apixaban 2.5 Mg Tablet PO 2.5 mg BID WILLIAM Administration Atorvastatin Calcium 10 mg 06/30/23 21:00 01
[2023-07-03] MEDS: ATORVASTATIN 10 MG TABLET PO (21:33)
[2023-07-03] MEDS: traZODone HCL 50 MG TABLET PO (21:34)
[2023-07-04] MEDS: diphenhydrAMINE HCl CAP 25 MG CAPSULE PO ×4 (03:33→20:32)
[2023-07-04 06:00] VITALS: BP 121/69; PULSE 62; RESP 20; TEMP 36.8; O2SAT 96
[2023-07-04 06:50] LABS: Hematocrit 41.6 % (37.0-47.0); Hemoglobin 13.5 g/dL (12.0-15.0); Mean Corpuscular HGB Conc 32.5 g/dl (32-36); Mean Corpuscular Volume 95.6 fl (80-100); Mean Platelet Volume 10.3 fl (7.4-10.4); Platelet Count Result 212 k/mm3 (150-375); Red Blood Count 4.35 M/mm3 (4.2-5.4); Red Cell Distribution Width 12.3 % (11.5-14.5); White Blood Count 5.4 K/mm3 (4.5-10.0)
[2023-07-04 07:21] LABS: Anion Gap 7 mmol/L (8-16); Blood Urea Nitrogen 37 mg/dL (7-17); Calcium 8.7 mg/dL (8.4-10.2); Carbon Dioxide 31 mmol/L (22-30); Chloride 98 mmol/L (98-107); Estimated CRCL calculation 50 ml/min; Estimated Glomerular Filt Rate 60; Glucose 108 mg/dL (65-110); Potassium 4.6 mmol/L (3.4-5.0); Sodium 136 mmol/L (137-145)
[2023-07-04] MEDS: FUROSEMIDE INJ 40 MG/4 ML VIAL IV PUSH (08:06)
[2023-07-04 08:07] VITALS: PULSE 58
[2023-07-04] MEDS: SPIRONOLACTONE 25 MG TABLET PO (08:07)
[2023-07-04] MEDS: carvediloL 12.5 MG TABLET PO ×2 (08:07→17:54)
[2023-07-04] MEDS: POTASSIUM CHLORIDE 10 MEQ ER TABLET PO ×2 (08:07→17:56)
[2023-07-04] MEDS: SACUBITRIL/VALSARTAN 24-26 MG TABLET 1 TAB PO ×2 (08:08→20:32)
[2023-07-04] MEDS: APIXABAN 2.5 MG TABLET PO ×2 (08:09→17:54)
[2023-07-04] MEDS: TOLNAFTATE 1% POWDER 45 GM BTL 1 APPLIC TOPICAL ×2 (08:09→20:32)
[2023-07-04] MEDS: INDOMETHACIN 25 MG CAPSULE PO ×2 (08:09→17:54)
[2023-07-04] MEDS: ESCITALOPRAM OXALATE 10 MG TABLET 20 MG PO (08:09)
[2023-07-04] MEDS: EMPAGLIFLOZIN 10 MG TABLET PO (08:09)
--- NOTE | 2023-07-04 12:52 | PM.PNCARD ---
Progress Note: A&P Assessment and Plan (1) Acute diastolic heart failure: Code(s): I50.31 - Acute diastolic (congestive) heart failure Status: Acute Plan 82-year-old lady with: Diastolic dysfunction and morbid obesity with lower extremity edema. She has significantly improved with intravenous furosemide for the last several days. Metabolic profile today demonstrates she is becoming more significantly pre renal. It is time to stop giving her intravenous furosemide will transition to oral furosemide at 40 mg daily starting tomorrow. Explained this to the patient she seems to have poor understanding of the issue. Continue to follow with you while she is in the hospital. She still has significantly obese lower extremities but not much pitting edema at this time Lonny Pierson MD [facility]IN [facility] Subjective Date/time seen: Date of service: 07/04/23 12:52 Interval history: New onset of acute diastolic failure, failing outpatient therapy, admitted for IV diuretics. History of hypertension, lymphedema, DVT on chronic anticoagulation, chronic infection of knee, and ambulatory difficulties. Great difficulty taking diuretics at home due to issues with ambulation Date of service 07/01/2023: Feels well, no SOB at rest. Already wondering how long she will need to be here and when she can go home. Daughter Veronica? is at the bedside. Systolic blood pressure 150-180 MmHg. Good diuresis. Not requiring O2. Worked with physical therapy. Service 07/02/2023: Less RIOS w/ Ph Tx. LE edema improving. Maintaining good diuresis. Renal function stable. Itchy intertriginous rash in the inguinal areas quite bothersome; getting Tolnaftate powder. Pleased to have a thorough bed bath today. ApneaLInk: AHI 16, lowest O2 sat 79%, suggesting PILLO Date of service 07/03/23: Shortness of a improving. Swelling improving as well, but still volume overloaded. BP, renal function stable. Still itchy Date of service 07/04/2023: Patient is comfortable eating her lunch watching television no significant complaint at this time Exam Const: General: cooperative, healthy appearing, comfortable and confusion Orientation/consciousness: oriented to person, patient oriented x3 and confusion Other: Sitting up in a chair, daughter at bedside, no distress HENMT: Mouth: Yes moist mucous membranes Eyes: General: appearance normal, both eyes and all related structures EOM: EOMs intact bilaterally Neck: Neck: supple and no JVD Thyroid: thyroid normal Carotids: no bruits Resp: Effort & Inspection: normal respiratory effort Auscultation: no rales Cardio: Rate: regular rate Rhythm: regular rhythm Heart sounds: no gallops and no murmurs GI: Inspection: normal to inspection Skin: General skin exam: normal color, no rashes or lesions noted and rashes (Hyperpigmentation and thickening of skin of lower extremities) Rashes: rashes noted (Hyperpigmentation and thickening of skin of lower extremities) Other: Consistent with chronic venous stasis. Also some areas of skin breakdown, well powdered and dry now. Neuro: General: oriented to person, patient oriented x3 and confusion Other: Was confused about how many days she has been in the hospital but otherwise oriented Extrem: General: edema Right lower extremity: edema Left lower extremity: edema Other: Chronic lower extremity lipedema but not much pitting edema at this time Psych: Appearance: grossly normal Mental Status: mental status grossly normal Objective Data Vital Signs Vital Signs: Vital Signs - 24 hr 07/03/23 14:00 07/03/23 15:00 07/03/23 17:25 Temperature 36.5 C 36.5 C Pulse Rate 63 63 67 Respiratory Rate 18 18 Blood Pressure 112/60 112/60 Pulse Oximetry 95 95 Oxygen Delivery 07/03/23 22:00 07/03/23 20:00 07/04/23 06:00 Temperature 36.6 C 36.8 C Pulse Rate 61 62 Respiratory Rate 18 20 Blood Pressure 114/68 121/69 Pulse Oximetry 96
[2023-07-04 14:00] VITALS: BP 114/55; PULSE 65; RESP 20; TEMP 36.9; O2SAT 98
--- NOTE | 2023-07-04 14:41 | PM.IMPN ---
Progress Note: A&P Assessment and Plan (1) Acute on chronic diastolic heart failure: Code(s): I50.33 - Acute on chronic diastolic (congestive) heart failure Status: Acute Assessment and Plan: transtion from furosemide 40 mg IV to PO continue spironolactone 20 mg daily. Jardiance 10 mg daily Monitor volume status, renal function, and electrolytes while diuresing. cardiology following - add Entresto, although with her EF being greater than 60% the benefit may not be very high. Hold enalapril 1st. working on d/c plan to increase compliance without Hines catheter apnea link done, would benefit from outpatient sleep study. CPAP while inpatient (2) Morbid obesity: Code(s): E66.01 - Morbid (severe) obesity due to excess calories Status: Chronic (3) Difficulty in walking: Code(s): R26.2 - Difficulty in walking, not elsewhere classified Status: Chronic Assessment and Plan: Patient has progressive disability, difficulty ambulating, and has been a fall risk. PT/OT (4) Hypertension: Code(s): I10 - Essential (primary) hypertension Status: Chronic Assessment and Plan: Continue carvedilol, spironolactone, furosemide changed enalapril to Entresto. (5) Chronic anticoagulation: Code(s): Z79.01 - physicist solid state (current) use of anticoagulants Status: Chronic Assessment and Plan: hx of DVT continue Eliquis (6) Lymphedema: Code(s): I89.0 - Lymphedema, not elsewhere classified Status: Chronic Plan Plan to d/c Thursday or Thursday Subjective Date/time seen: 07/04/23 14:41 Interval history: Patient has no complaints this morning other than itching and rash in inguinal area, denies any pain or distress. Will transition from IV to PO diuresis tomorrow. Denies SOB or chest pain. Cardiology following, plan for d/c tomorrow or Thursday. Hines remains in place while actively diuresing. Review of Systems Review of Systems: All systems reviewed & are unremarkable except as noted in HPI and below Exam Narrative: General: Well-developed, nontoxic-appearing female bed in no acute distress. HEENT: PERRL, EOMI. Neck: Supple. Respiratory: Respirations are nonlabored, lungs clear to ausculation. Cardiovascular: RRR with S1-S2. Gastrointestinal: Abdomen is soft, morbidly obese, nontender, and nondistended with positive bowel sounds. Skin: Warm and dry. Chronic skin changes of the lower extremities bilaterally. Extremities: No cyanosis or clubbing. Improving bilateral lower extremity edema with pitting edema, left greater than right. Radial and pedal pulses intact. Neurological: A&O x3. Cranial nerves 2-12 are grossly intact. No gross focal deficits to casual conversation. Psychiatric: Pleasant and cooperative with normal mood and affect. Judgment and insight intact. Objective Data Vital Signs Vital Signs: Vital Signs - 24 hr 07/03/23 15:00 07/03/23 17:25 07/03/23 22:00 Temperature 97.7 F 97.8 F Pulse Rate 63 67 61 Respiratory Rate 18 18 Blood Pressure 112/60 114/68 Pulse Oximetry 95 96 Oxygen Delivery 07/03/23 20:00 07/04/23 06:00 07/04/23 08:07 Temperature 98.2 F Pulse Rate 62 58 L Respiratory Rate 20 Blood Pressure 121/69 Pulse Oximetry 96 Oxygen Delivery Room Air 07/04/23 08:05 Temperature Pulse Rate Respiratory Rate Blood Pressure Pulse Oximetry Oxygen Delivery Room Air Intake/Output Intake/Output: Intake & Output 07/01/23 07/02/23 07/03/23 07/04/23 23:59 23:59 23:59 23:59 Intake Total 1390 964 817 0832 Output Total 4750 2450 2150 1850 Balance -3360 -1570 -1180 -810 Meds/Results Medications: Active Medications Generic Name Dose Route Start Last Admin Trade Name Freq PRN Reason Stop Dose Admin Acetaminophen 650 mg 06/30/23 16:23 06/30/23 17:42 Acetaminophen 325 Mg Tablet PO 650 mg Q6H PRN Administration Mild Pain (1-3) or Fever A
[2023-07-04 17:54] VITALS: PULSE 69
[2023-07-04] MEDS: traZODone HCL 50 MG TABLET PO (20:32)
[2023-07-04] MEDS: ATORVASTATIN 10 MG TABLET PO (20:32)
[2023-07-04 20:52] VITALS: BP 113/45; PULSE 67; RESP 16; TEMP 36.4; O2SAT 96
[2023-07-05 05:13] VITALS: BP 120/42; PULSE 60; RESP 16; TEMP 36.2; O2SAT 95
[2023-07-05] MEDS: diphenhydrAMINE HCl CAP 25 MG CAPSULE PO ×2 (05:41→11:38)
[2023-07-05 06:20] LABS: Hematocrit 41.1 % (37.0-47.0); Hemoglobin 13.3 g/dL (12.0-15.0); Mean Corpuscular HGB Conc 32.4 g/dl (32-36); Mean Corpuscular Hemoglobin 31.1 pg (26-34); Mean Corpuscular Volume 96.3 fl (80-100); Mean Platelet Volume 10.5 fl (7.4-10.4); Platelet Count Result 217 k/mm3 (150-375); Red Blood Count 4.27 M/mm3 (4.2-5.4); Red Cell Distribution Width 12.4 % (11.5-14.5); White Blood Count 5.6 K/mm3 (4.5-10.0)
[2023-07-05 06:39] LABS: Anion Gap 3 mmol/L (8-16); Blood Urea Nitrogen 41 mg/dL (7-17); Carbon Dioxide 35 mmol/L (22-30); Chloride 99 mmol/L (98-107); Estimated CRCL calculation 45 ml/min; Estimated Glomerular Filt Rate 53; Glucose 112 mg/dL (65-110); Potassium 4.5 mmol/L (3.4-5.0); Sodium 137 mmol/L (137-145)
[2023-07-05 08:24] VITALS: PULSE 58
[2023-07-05] MEDS: ESCITALOPRAM OXALATE 10 MG TABLET 20 MG PO (08:24)
[2023-07-05] MEDS: carvediloL 12.5 MG TABLET PO (08:24)
[2023-07-05] MEDS: APIXABAN 2.5 MG TABLET PO (08:24)
[2023-07-05] MEDS: INDOMETHACIN 25 MG CAPSULE PO (08:26)
[2023-07-05] MEDS: SACUBITRIL/VALSARTAN 24-26 MG TABLET 1 TAB PO (08:26)
[2023-07-05] MEDS: TOLNAFTATE 1% POWDER 45 GM BTL 1 APPLIC TOPICAL (08:27)
[2023-07-05] MEDS: SPIRONOLACTONE 25 MG TABLET PO (08:27)
[2023-07-05] MEDS: EMPAGLIFLOZIN 10 MG TABLET PO (08:27)
[2023-07-05] MEDS: POTASSIUM CHLORIDE 10 MEQ ER TABLET PO (08:27)
[2023-07-05] MEDS: FUROSEMIDE 40 MG TABLET PO (08:27)
--- NOTE | 2023-07-05 14:16 | PM.DS ---
DS: Admitting Diagnosis Discharge Date 07/05/23 Admitting Diagnosis Diastolic congestive heart failure exacerbation. DS: Discharge Diagnosis Discharge Diagnosis (1) Acute on chronic diastolic heart failure: Code(s): I50.33 - Acute on chronic diastolic (congestive) heart failure Status: Acute Assessment and Plan: continue furosemide 40 mg PO daily continue spironolactone 20 mg daily. Jardiance 10 mg daily continue Entresto Monitor volume status, renal function, and electrolytes while diuresing. cardiology consulted - follow up outpatient apnea link done, would benefit from outpatient sleep study. Discussed PCP ordering for her. (2) Morbid obesity: Code(s): E66.01 - Morbid (severe) obesity due to excess calories Status: Chronic (3) Difficulty in walking: Code(s): R26.2 - Difficulty in walking, not elsewhere classified Status: Chronic Assessment and Plan: Patient has progressive disability, difficulty ambulating, and has been a fall risk. PT/OT (4) Hypertension: Code(s): I10 - Essential (primary) hypertension Status: Chronic Assessment and Plan: Continue carvedilol, spironolactone, furosemide continue Entresto. (5) Chronic anticoagulation: Code(s): Z79.01 - roasterman (current) use of anticoagulants Status: Chronic Assessment and Plan: hx of DVT continue Eliquis (6) Lymphedema: Code(s): I89.0 - Lymphedema, not elsewhere classified Status: Chronic Assessment and Plan: resume boots DS: Summary Hospital Course Hospital Course: Patient is 82 YO female with PMH of DVT on chronic anticoagulation, hypertension, hyperlipidemia, chronic lymphedema, morbid obesity, and diastolic congestive heart failure admitted for diuresis. She was seen by Dr. Hernandez as an outpatient for new onset diastolic congestive heart failure. She reported a 30 lb weight gain and worsening lower extremity edema with dyspnea on exertion. She had not been compliant with diuretics as it causes her urinary frequency and due to her weight and debility she is not able to get to the bathroom quickly when she develops the urge to urinate. She was admitted for IV diuresis. She denied chest pain, pleuritic pain, palpitations, orthopnea, nausea, vomiting, and sweats. Labs remained stable while diuresing. Cardiology followed while inpatient and adjusted her medication regimen, will continue to follow up outpatient. Hines catheter was removed and patient is voiding on her own. Apnea link done while inpatient was indicative of PILLO, encouraged to follow up with her PCP for a sleep study to get home CPAP. She will return to her AL today as she is adequately diuresed and cleared by cardiology. Status at Discharge Functional status at discharge: wheelchair bound Overall status at discharge: patient is back to baseline Time Spent with Patient Time attestation: Total time spent providing and/or coordinating discharge services: Exam Narrative: General: Well-developed, nontoxic-appearing female bed in no acute distress. HEENT: PERRL, EOMI. Neck: Supple. Respiratory: Respirations are nonlabored, lungs clear to ausculation. Cardiovascular: RRR with S1-S2. Gastrointestinal: Abdomen is soft, morbidly obese, nontender, and nondistended with positive bowel sounds. Skin: Warm and dry. Chronic skin changes of the lower extremities bilaterally. Extremities: No cyanosis or clubbing. Improving bilateral lower extremity edema with pitting edema, left greater than right. Radial and pedal pulses intact. Neurological: A&O x3. Cranial nerves 2-12 are grossly intact. No gross focal deficits to casual conversation. Psychiatric: Pleasant and cooperative with normal mood and affect. Judgment and insight intact. DS: Data Data Completed and Pending Labs on day of discharge: Labs from last 24 hours 07/05/23 05:53 WBC 5.6 RBC 4.27 Hgb 13.3
== END 2023-07-05 13:52 | DRG 291 ==
PROVIDERS: Physician Assistant; Admitting Provider Internal Medicine Cardiovascular Disease; PCP Hospitalist; Visit Provider Nurse Practitioner
DX: I11.0 Hypertensive heart disease with heart failure (principal); I50.33 Acute on chronic diastolic (congestive) heart failure; Z68.42 Body mass index [BMI] 45.0-49.9, adult; M00.9 Pyogenic arthritis, unspecified; I89.0 Lymphedema, not elsewhere classified; E78.5 Hyperlipidemia, unspecified; E66.01 Morbid (severe) obesity due to excess calories; L30.4 Erythema intertrigo; M19.90 Unspecified osteoarthritis, unspecified site; R26.2 Difficulty in walking, not elsewhere classified; F32.A Depression, unspecified; Z96.653 Presence of artificial knee joint, bilateral; Z79.01 Long term (current) use of anticoagulants; Z86.718 Personal history of other venous thrombosis and embolism
CPT/HCPCS: 36415; 80048; 80076; 81001; 83735; 84443; 85027; 97110; 97116; 97161; A9270; J1940